=== PATIENT | male | born 1940 | race Caucasian/White ===

== ENCOUNTER 2019-08-11 06:34 | Inpatient (IN) | payer MEDICARE, BC ==
[~2019-08-11] VITALS: Ht 175.3 cm; Wt 96.9 kg
[~2019-08-11 06:34] MED LIST: ASPI81TA52 PO; CATAPLEX B PO; FLAX100015 PO; HYDR-4383 PO; LOSA100T57 PO; MULT-1085 PO; ONDA4TAB6 PO; PANT20TA3 PO; SIMV-42 PO; TEST200V10 IM; UBID100C16 PO; VIT1CAPS48 PO
[2019-08-11 07:09] LABS: BASOPHILS # (AUTO) 0.1 X10'3 (0-0.2); BASOPHILS % (AUTO) 0.6 % (0-1); EOSINOPHILS # (AUTO) 0.1 X10'3 (0-0.9); EOSINOPHILS % (AUTO) 0.7 % (0-6); HEMATOCRIT 55.7 % (42.0-52.0); LYMPHOCYTES # (AUTO) 1.2 X10'3 (1.1-4.8); LYMPHOCYTES % (AUTO) 13.4 % (21-51); MEAN CORPUSCULAR HEMOGLOBIN 33.1 PG (27.0-31.0); MEAN CORPUSCULAR HGB CONC 34.4 g/dL (33.0-36.5); MEAN CORPUSCULAR VOLUME 96.2 FL (78-98); MEAN PLATELET VOLUME 7.3 FL (7.4-10.4); MONOCYTES # (AUTO) 0.5 X10'3 (0-0.9); MONOCYTES % (AUTO) 5.7 % (2-12); NEUTROPHILS # (AUTO) 7.2 X10'3 (1.8-7.7); NEUTROPHILS % (AUTO) 79.6 % (42-75); PLATELET COUNT 198 X10'3 (140-440); RED BLOOD COUNT 5.79 X10'6 (4.70-6.10); RED CELL DISTRIBUTION WIDTH 14.3 % (11.5-14.5); WHITE BLOOD COUNT 9.1 X10'3 (4.5-11.0)
[2019-08-11 07:12] LABS: HEMOGLOBIN 19.2 g/dl (14.0-17.9)
[2019-08-11 07:20] LABS: PARTIAL THROMBOPLASTIN TIME 30 SECONDS (22-32)
[2019-08-11] MEDS ORDERED: ROSU20TA2 PO (07:24)
[2019-08-11] MEDS ORDERED: OMEG1CAP21 PO (07:26)
[2019-08-11] MEDS ORDERED: VITAMIN K2 PO (07:26)
[2019-08-11] MEDS ORDERED: tumeric (07:27)
[2019-08-11 07:31] LABS: ALANINE AMINOTRANSFERASE 31 U/L (12-78); ALBUMIN 3.6 G/DL (3.4-5.0); ALBUMIN/GLOBULIN RATIO 0.9 (1.1-1.5); ALKALINE PHOSPHATASE 54 IU/L (46-116); ANION GAP 9 (8-16); ASPARTATE AMINO TRANSFERASE 25 U/L (10-37); BILIRUBIN,TOTAL 0.8 MG/DL (0.1-1.0); BLOOD UREA NITROGEN 18 MG/DL (7-18); BUN/CREATININE RATIO 16.1 (5.4-32.0); CALCIUM 9.1 MG/DL (8.5-10.1); CHLORIDE 104 MMOL/L (99-107); CREATININE 1.12 MG/DL (0.60-1.10); GLUCOSE 153 MG/DL (70-104); POTASSIUM 4.1 MMOL/L (3.5-5.1); SODIUM 137 MMOL/L (135-145); TOTAL CARBON DIOXIDE 24.2 MMOL/L (24-32); TOTAL PROTEIN 7.8 G/DL (6.4-8.2); eGFR 63 ML/MIN
[2019-08-11] MEDS ORDERED: ondansetron/PF 4mg/2ml inj IV ONE ×2 (07:40→08:00)
[2019-08-11] MEDS ORDERED: iohexol 350MG/ML 100ml bottle IV ONE (07:51)
[2019-08-11] MEDS: morphine 4 MG/ML inj SYRINge IV PRN ×4 (07:55→11:00)
--- NOTE | 2019-08-11 08:06 | NUR ---
dropped zofran. bottle broke. called pharmacy and had med reordered
--- NOTE | 2019-08-11 08:08 | NUR ---
Pt out to CT scan via wheelchair.
[2019-08-11 08:24] LABS: LIPASE 11062 U/L (73-393)
[2019-08-11 09:16] LABS: CLARITY,URINE CLEAR (Clear); COLOR,URINE YELLOW (Yellow); GLUCOSE, URINE NEGATIVE (Neg); KETONES,URINE TRACE mg/dl (Neg); LEUKOCYTE ESTERASE ,URINE NEGATIVE (Neg); NITRITES, URINE NEGATIVE (Neg); OCCULT BLOOD,URINE NEGATIVE (Neg); PROTEIN,URINE 30 mg/dl (Neg)
[2019-08-11 09:17] LABS: UA COLLECTION TYPE CLN CATCH MIDSTREAM
[2019-08-11] MEDS ORDERED: normal saline 1000ML IV soln IVB ONE (09:25)
[2019-08-11 09:26] LABS: BACTERIA,URINE FEW /HPF (Neg); RBC,URINE 0-2 /HPF (0-2); SQUAMOUS EPITHELIAL CELL,UR FEW /LPF (FEW); WBC,URINE 0-4 /HPF (0-4)
[2019-08-11] MEDS ORDERED: potassium CL 10mEq/100ml bag 100 ML IV PRN ×2 (09:55)
[2019-08-11] MEDS ORDERED: magnesium 2GM in 50ml NS 50 ML IV PRN (09:55)
[2019-08-11] MEDS ORDERED: ondansetron/PF 4mg/2ml inj IV PRN (09:55)
[2019-08-11] MEDS ORDERED: magnesium Cl slow-release 64mg tablet PO PRN (09:55)
[2019-08-11] MEDS ORDERED: magnesium 4gm in 100ml NS 100 ML IV PRN (09:55)
[2019-08-11] MEDS ORDERED: potassium Cl 20 mEq SR tablet PO PRN ×2 (09:55)
[2019-08-11] MEDS: normal saline 1000ml 1,000 ML IV SCH ×2 (10:53→19:54)
[2019-08-11] MEDS ORDERED: ROSU40TA PO (10:56)
--- NOTE | 2019-08-11 11:16 | NUR ---
11:16-Attempted to call report to surgical floor. Nurse is off floor for about 20 minutes per tech.
--- NOTE | 2019-08-11 11:28 | NUR ---
Received patient report from ER nurse Ghassan CONTRERAS. Awaiting arrival to room 347B.
[2019-08-11 12:45] VITALS: BP 200/105
[2019-08-11] MEDS ORDERED: labetalol 20mg/4ml (5mg/ml) syringe IV ONE (12:55)
--- NOTE | 2019-08-11 12:55 | NUR ---
Dr. Rubio called regarding BP 200/105. stated she will be putting orders in. Pt oriented to room, call light, bed controls.
[2019-08-11] MEDS ORDERED: hydrALAZINE 20mg/ml inj. IV ONE (13:00)
[2019-08-11] MEDS ORDERED: pneumococcal 23-VAL P-sac vacc 25 mcg/0.5ml vial IMVAC ONE (13:20)
--- NOTE | 2019-08-11 13:30 | NUR ---
Patient had some vomitous when he got up to use the urinal, described as bile into the trash can.
[2019-08-11] MEDS: morphine 2 MG/ML inj. syringe IV PRN ×2 (13:37→20:11)
[2019-08-11 14:00] VITALS: BP 171/89
[2019-08-11 14:30] VITALS: BP 168/86
[2019-08-11 15:48] VITALS: BP 159/89
[2019-08-11 16:33] VITALS: BP 169/88
[2019-08-11] MEDS: pantoprazole 40 MG vial IV SCH (17:31)
[2019-08-11 18:00] VITALS: BP 173/97
--- NOTE | 2019-08-11 18:21 | NUR ---
Problems reprioritized. Patient report given, questions answered & plan of care reviewed with Prudence RN.
--- NOTE | 2019-08-11 18:38 | NUR ---
Patient in room [facility]. I have received report from Liz CONTRERAS and had the opportunity to ask questions and assume patient care. Patient is resting and his is by his bedside
[2019-08-11] MEDS: hydrALAZINE 20mg/ml inj. IV SCH (20:10)
[2019-08-11] MEDS ORDERED: morphine 2 MG/ML inj. syringe IV PRN ×2 (23:00)
[2019-08-12] VITALS: BP 135/76
[2019-08-12] MEDS: hydrALAZINE 20mg/ml inj. IV SCH ×4 (02:42→19:56)
[2019-08-12] MEDS: normal saline 1000ml 1,000 ML IV SCH (02:46)
[2019-08-12] MEDS: morphine 4 MG/ML inj SYRINge IV PRN ×2 (02:46→07:43)
[2019-08-12 04:26] LABS: BASOPHILS % (AUTO) 0.2 % (0-1); EOSINOPHILS % (AUTO) 0 % (0-6); HEMATOCRIT 54.5 % (42.0-52.0); LYMPHOCYTES # (AUTO) 0.7 X10'3 (1.1-4.8); LYMPHOCYTES % (AUTO) 5.9 % (21-51); MEAN CORPUSCULAR HEMOGLOBIN 32.6 PG (27.0-31.0); MEAN CORPUSCULAR HGB CONC 33.8 g/dL (33.0-36.5); MEAN CORPUSCULAR VOLUME 96.6 FL (78-98); MEAN PLATELET VOLUME 7.5 FL (7.4-10.4); MONOCYTES # (AUTO) 0.8 X10'3 (0-0.9); MONOCYTES % (AUTO) 6.4 % (2-12); NEUTROPHILS % (AUTO) 87.5 % (42-75); PLATELET COUNT 192 X10'3 (140-440); RED BLOOD COUNT 5.64 X10'6 (4.70-6.10); RED CELL DISTRIBUTION WIDTH 14.5 % (11.5-14.5); WHITE BLOOD COUNT 12.6 X10'3 (4.5-11.0)
[2019-08-12 04:57] LABS: ALBUMIN 3.2 G/DL (3.4-5.0); ANION GAP 9 (8-16); BLOOD UREA NITROGEN 14 MG/DL (7-18); BUN/CREATININE RATIO 14.6 (5.4-32.0); CHLORIDE 104 MMOL/L (99-107); CREATININE 0.96 MG/DL (0.60-1.10); GLUCOSE 124 MG/DL (70-104); MAGNESIUM 1.8 MG/DL (1.5-2.4); POTASSIUM 4.1 MMOL/L (3.5-5.1); SODIUM 138 MMOL/L (135-145); TOTAL CARBON DIOXIDE 24.6 MMOL/L (24-32); eGFR 75 ML/MIN
[2019-08-12 05:04] LABS: HEMOGLOBIN 18.4 g/dl (14.0-17.9)
[2019-08-12 05:12] LABS: LIPASE 3213 U/L (73-393)
--- NOTE | 2019-08-12 06:30 | NUR ---
Patient in room [facility]. I have received report from Geovanna CONTRERAS and had the opportunity to ask questions and assume patient care.
--- NOTE | 2019-08-12 06:35 | NUR ---
Problems reprioritized. Patient report given, questions answered & plan of care reviewed with Liz CONTRERAS.Patient is resting and shows no sign of distree.
[2019-08-12 07:12] VITALS: BP 135/77
[2019-08-12] MEDS: pantoprazole 40 MG vial IV SCH (07:43)
[2019-08-12] MEDS: K and/or MAG REPLACEMENT MC SCH (07:52)
--- NOTE | 2019-08-12 10:58 | NUR ---
Informed Dr. Jacobo that med rec needs to be addressed. stated he would address.
[2019-08-12 11:17] VITALS: BP 144/79
[2019-08-12] MEDS: HYDROcodone/acetaminophen 5mg/325mg tablet PO PRN ×2 (12:50→19:57)
[2019-08-12 18:00] VITALS: BP 125/75
--- NOTE | 2019-08-12 18:28 | NUR ---
Problems reprioritized. Patient report given, questions answered & plan of care reviewed with Prudence RN.
[2019-08-12] MEDS ORDERED: aspirin 81mg tablet.DR PO SCH (21:00)
[2019-08-13] VITALS: BP 125/60
[2019-08-13] MEDS: hydrALAZINE 20mg/ml inj. IV SCH ×2 (02:39→07:14)
[2019-08-13 04:46] LABS: BASOPHILS % (AUTO) 0.1 % (0-1); EOSINOPHILS % (AUTO) 0.1 % (0-6); HEMATOCRIT 51.8 % (42.0-52.0); HEMOGLOBIN 17.7 g/dl (14.0-17.9); LYMPHOCYTES % (AUTO) 8.6 % (21-51); MEAN CORPUSCULAR HGB CONC 34.3 g/dL (33.0-36.5); MEAN CORPUSCULAR VOLUME 96.2 FL (78-98); MONOCYTES # (AUTO) 1.2 X10'3 (0-0.9); MONOCYTES % (AUTO) 9.6 % (2-12); NEUTROPHILS # (AUTO) 9.8 X10'3 (1.8-7.7); NEUTROPHILS % (AUTO) 81.6 % (42-75); PLATELET COUNT 184 X10'3 (140-440); RED BLOOD COUNT 5.38 X10'6 (4.70-6.10)
[2019-08-13 06:02] LABS: ALBUMIN 3.1 G/DL (3.4-5.0); ANION GAP 13 (8-16); BLOOD UREA NITROGEN 18 MG/DL (7-18); BUN/CREATININE RATIO 18.2 (5.4-32.0); CALCIUM 9.7 MG/DL (8.5-10.1); CHLORIDE 99 MMOL/L (99-107); CREATININE 0.99 MG/DL (0.60-1.10); GLUCOSE 106 MG/DL (70-104); LIPASE 219 U/L (73-393); MAGNESIUM 1.9 MG/DL (1.5-2.4); POTASSIUM 3.8 MMOL/L (3.5-5.1); SODIUM 133 MMOL/L (135-145); TOTAL CARBON DIOXIDE 21.1 MMOL/L (24-32); eGFR 73 ML/MIN
--- NOTE | 2019-08-13 06:28 | NUR ---
Problems reprioritized. Patient report given, questions answered & plan of care reviewed with Liz CONTRERAS.
--- NOTE | 2019-08-13 06:52 | NUR ---
Patient in room [facility]. I have received report from Geovanna CONTRERAS and had the opportunity to ask questions and assume patient care.
[2019-08-13 06:56] VITALS: BP 162/77
[2019-08-13] MEDS: HYDROcodone/acetaminophen 5mg/325mg tablet PO PRN (07:13)
[2019-08-13] MEDS: K and/or MAG REPLACEMENT MC SCH (07:14)
[2019-08-13] MEDS ORDERED: pantoprazole 40mg Tablet.DR PO SCH (07:30)
[2019-08-13] MEDS ORDERED: AMLO5TAB4 PO (11:21)
[2019-08-13 11:32] VITALS: BP 135/83
== END 2019-08-13 14:16 | disposition home or self-care (01) | DRG 440 ==
LOC: ER 06:35 → ED HOLD 09:54 → SUR 3N 12:40
PROVIDERS: ADMIT Internal Medicine; ATTEND Hospitalist
PROC: 3E0234Z Introduction of Serum, Toxoid and Vaccine into Muscle, Percutaneous Approach (ICD-10-PCS; principal; 2019-08-11)
PROC: B3251ZZ Computerized Tomography (CT Scan) of Bilateral Common Carotid Arteries using Low Osmolar Contrast (ICD-10-PCS; 2019-08-11)
PROC: B3201ZZ Computerized Tomography (CT Scan) of Thoracic Aorta using Low Osmolar Contrast (ICD-10-PCS; 2019-08-11)
PROC: B3281ZZ Computerized Tomography (CT Scan) of Bilateral Internal Carotid Arteries using Low Osmolar Contrast (ICD-10-PCS; 2019-08-11)
PROC: B4201ZZ Computerized Tomography (CT Scan) of Abdominal Aorta using Low Osmolar Contrast (ICD-10-PCS; 2019-08-11)
PROC: B4281ZZ Computerized Tomography (CT Scan) of Bilateral Renal Arteries using Low Osmolar Contrast (ICD-10-PCS; 2019-08-11)
PROC: B42C1ZZ Computerized Tomography (CT Scan) of Pelvic Arteries using Low Osmolar Contrast (ICD-10-PCS; 2019-08-11)
PROC: B42H1ZZ Computerized Tomography (CT Scan) of Bilateral Lower Extremity Arteries using Low Osmolar Contrast (ICD-10-PCS; 2019-08-11)
PROC: B4211ZZ Computerized Tomography (CT Scan) of Celiac Artery using Low Osmolar Contrast (ICD-10-PCS; 2019-08-11)
DX: K85.90 Acute pancreatitis without necrosis or infection, unspecified (principal); E78.5 Hyperlipidemia, unspecified; I10 Essential (primary) hypertension; J43.2 Centrilobular emphysema; Z87.891 Personal history of nicotine dependence; Z79.899 Other long term (current) drug therapy; Z23 Encounter for immunization; Z79.82 Long term (current) use of aspirin
CPT/HCPCS: 36415; 71045; 71275; 74174; 76700; 80048; 80053; 81001; 83690; 83735; 83880; 84484; 85025; 85610; 85730; 87081; 90732; 93005; 96374; 99285; C9113; G0378; J0360; J2270; J2405; J3490; J7030; Q9967

== ENCOUNTER 2024-08-08 11:02 | Outpatient (CLI) | payer MEDICARE, OTHER ==
[~2024-08-08 11:02] MED LIST changes: +AMLO5TAB4 PO; -CATAPLEX B PO; -FLAX100015 PO; -HYDR-4383 PO; -LOSA100T57 PO; +LOSA100T58 PO; +OMEG1CAP21 PO; -ONDA4TAB6 PO; -PANT20TA3 PO; +ROSU40TA PO; -SIMV-42 PO; -TEST200V10 IM; +TEST200V33 IM; +VITAMIN K2 PO; +tumeric
== END 2024-08-08 23:59 | disposition home or self-care (01) ==
LOC: RAD 11:02
PROVIDERS: ATTEND Registered Nurse
DX: M19.011 Primary osteoarthritis, right shoulder (principal); M25.511 Pain in right shoulder
CPT/HCPCS: 73030

== ENCOUNTER → 2024-08-23 | Outpatient (CLI) | payer MEDICARE, OTHER | END | disposition home or self-care (01) | LOC: 64 CT 11:19 | PROVIDERS: ATTEND Registered Nurse | DX: M19.011 Primary osteoarthritis, right shoulder (principal); J43.9 Emphysema, unspecified; M25.811 Other specified joint disorders, right shoulder; M25.511 Pain in right shoulder | CPT/HCPCS: 73200 ==